=== PATIENT | female | born 1955 | race Caucasian/White ===

== ENCOUNTER 2023-06-19 07:20 | Outpatient (OUT) | payer MEDICARE, OTHER, SELFPAY ==
--- NOTE | 2023-06-19 07:24 | CT_ITS ---
[address] [address] Patient Name: CYNTHIA KERN MRN: [id number] date: 1955 Sex: F Assigned Patient Location: CT Current Patient Location: CT Accession/Order Number: [id number] Exam Date: 06/19/2023 08:47 Report Date: 06/19/2023 15:50 At the request of: KIMBERLY ANTONIO Procedure: CT abdomen pelvis wo con EXAMINATION: CT abdomen pelvis wo con HISTORY: ventral hernia without obstruction K43.9 , right lower quadrant pain COMPARISON: CT abdomen pelvis 11/08/2021 TECHNIQUE: Axial, Coronal, and Sagittal images were obtained without and/or with IV contrast as indicated by examination type. Dose reduction techniques were achieved by using automated exposure control and/or adjustment of mA and/or kV according to patient size and/or use of iterative reconstruction technique. FINDINGS: LUNG BASES: No visible pulmonary or pleural disease. LIVER: Normal contour without suspicious density or significant focal lesion. BILIARY: Cholecystectomy. PANCREAS: No lesion, fluid collection, or abnormal duct dilatation. SPLEEN: No enlargement or focal lesion. ADRENALS: No mass or enlargement. KIDNEYS: Benign-appearing right renal cyst. No mass, obstruction, or calcification. BOWEL/MESENTERY: No visible mass, obstruction, or bowel wall thickening. Normal appendix. AORTA/VASCULAR: No aneurysm or dissection. RETROPERITONEUM: No mass or adenopathy. LYMPH NODES: No adenopathy. URINARY BLADDER: No visible focal wall thickening, lesion, or calculus. PELVIC ORGANS: Hysterectomy. ABDOMINAL WALL: Marked eventration versus large hernia with the majority of the bowel and mesentery within a large pannus extending well below the symphysis pubis. No appreciable strangulation or obstruction. No free fluid. BONES: Degenerative disc disease of lower lumbar spine. No acute bone abnormality. OTHER: Negative. CT/CT abdomen pelvis wo con IMPRESSION: 1. No acute or appreciable specific findings to account for patient's right lower quadrant pain. 2. 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 No obstruction, strangulation, or inflammatory changes. Electronically authenticated by: ZOHAIB FIELD Date: 06/19/2023 15:50
--- NOTE | 2023-06-19 07:29 | CT_ITS ---
[address] [address] Patient Name: CYNTHIA KERN MRN: [id number] date: 1955 Sex: F Assigned Patient Location: CT Current Patient Location: CT Accession/Order Number: [id number] Exam Date: 06/19/2023 07:37 Report Date: 06/19/2023 08:46 At the request of: KIMBERLY ANTONIO Procedure: CT lumbar spine wo con EXAM: CT lumbar spine wo con CLINICAL INDICATION: spinal stenosis of lumbar region M48.082 COMPARISON: CT lumbar spine 02/03/2022. TECHNIQUE: Multiple axial images were obtained of the lumbar spine. Soft tissue and bone windows in coronal and sagittal planes were obtained and reviewed. Dose reduction techniques were achieved by using automated exposure control and/or adjustment of mA and/or kV according to patient size and/or use of iterative reconstruction technique. FINDINGS: Osseous Mineralization: Mild diffuse osseous demineralization limits evaluation of fine osseous detail. Trauma: No definite fracture, traumatic malalignment, facet dislocation, or discrete epidural hemorrhage. Alignment: Minimal anterior subluxation of L3 on L4 could relate in part to patient positioning. Vertebral Body Heights: Maintained. Soft Tissues: Normal. Spondylotic Changes: Multilevel spondylotic changes include varying degrees of intervertebral disc height loss, endplate sclerosis, osteophytic ridging, and facet/ligamentum flavum hypertrophy. There is vacuum disc phenomenon at L3-L4 and L4-L5. Slight disc bulges and osteophytic ridging at L2-L3, L3-L4, and L4-L5. This in conjunction with advanced bilateral facet/ligamentum flavum hypertrophy results in at least moderate spinal canal narrowing at L3-L4 and mild spinal canal narrowing at L2-L3. Moderate bilateral foraminal narrowing at L3-L4 and L4-L5. Other: Right renal cyst measures 3.[address]/CT lumbar spine wo con IMPRESSION: 1. No lumbar spine fracture or traumatic malalignment. 2. Multilevel spondylotic changes with at least moderate spinal canal narrowing at L3-L4. This is contributed to by disc osteophyte complex and facet/ligamentum flavum hypertrophy. Electronically authenticated by: MARCELINO DELAROSA Date: 06/19/2023 08:46
== END 2023-06-19 07:21 | disposition home or self-care (01) ==
LOC: CT 07:20
PROVIDERS: PCP Nurse Practitioner Family; Visit Provider Nurse Practitioner Family
DX: M48.062 Spinal stenosis, lumbar region with neurogenic claudication (principal); M47.817 Spondylosis without myelopathy or radiculopathy, lumbosacral region; M54.50 Low back pain, unspecified; K43.9 Ventral hernia without obstruction or gangrene; R10.31 Right lower quadrant pain; N28.1 Cyst of kidney, acquired
CPT/HCPCS: 72131; 74176